=== PATIENT | male | born 1990 | race Caucasian/White ===

== ENCOUNTER 2024-12-09 09:50 | Emergency (ER) | payer BC ==
--- NOTE | 2024-12-09 09:53 | ERPHSYRPT ---
- History of Present Illness Time Seen by Provider: 12/09/24 09:53 Historian: patient Exam Limitations: no limitations Physician History: This is a morbidly obese 34-year-old white male patient who arrives by private vehicle accompanied by family and is a patient of Dr. Vera. The patient was sent to us from urgent care center in [facility] out of concern of an abnormality on the twelve-lead EKG as well as symptoms of right sided chest pain without radiation, cough, fluid in his ears. Patient denies shortness of breath. He has no documented history of coronary artery disease. He is not on any medications. He has additional symptoms of bilateral earaches as well. Timing/Duration: day(s) (4) Quality: aching Location: other (Right chest) Chest Pain Radiation: no radiation Severity of Pain-Max: mild Severity of Pain-Current: none Associated Symptoms: cough, No abdominal pain, No shortness of breath Prior Chest Pain/Cardiac Workup: no prior chest pain, no prior cardiac workup Nitro Today/Relief: no nitro taken today Aspirin Treatment Today: 81 mg x 4, provided by ED Allergies/Adverse Reactions: triamcinolone [From Kenalog] Allergy (Verified 12/09/24 10:21) Travel Risk - International Travel Have you traveled outside of the country in past 3 weeks: No - Emerging Infectious Disease Are you exhibiting symptoms associated with any current EIDs: No - Review of Systems Constitutional: No Symptoms Eyes: No Symptoms Ears, Nose, & Throat: No Symptoms Respiratory: Cough Cardiac: Chest Pain Abdominal/Gastrointestinal: No Symptoms Genitourinary Symptoms: No Symptoms Musculoskeletal: No Symptoms Skin: No Symptoms Neurological: No Symptoms Psychological: No Symptoms Endocrine: No Symptoms Hematologic/Lymphatic: No Symptoms Immunological/Allergic: No Symptoms All Other Systems: Reviewed and Negative - Past Medical History Pertinent Past Medical History: No - Nursing Vital Signs Nursing Vital Signs: Initial Vital Signs Temperature 98.3 F 12/09/24 09:51 Pulse Rate 62 12/09/24 09:51 Respiratory Rate 14 12/09/24 09:51 Blood Pressure 142/90 12/09/24 09:51 O2 Sat by Pulse Oximetry 97 12/09/24 09:51 Pain Scale Pain Intensity 4 - Physical Exam General Appearance: no apparent distress, alert, anxiety, obese Eye Exam: PERRL/EOMI, eyes nml inspection Ears, Nose, Throat Exam: normal ENT inspection, moist mucous membranes Neck Exam: normal inspection, non-tender, supple, full range of motion Respiratory Exam: normal breath sounds, lungs clear, airway intact, No chest tenderness (No significant tenderness in his chest at this time), No respiratory distress Cardiovascular Exam: regular rate/rhythm, normal heart sounds, normal peripheral pulses Gastrointestinal/Abdomen Exam: soft, normal bowel sounds, No tenderness Rectal Exam: not done Back Exam: normal inspection, normal range of motion, No CVA tenderness, No vertebral tenderness Extremity Exam: normal inspection, normal range of motion, pelvis stable Neurologic Exam: alert, oriented x 3, cooperative, 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 No evidence of acute ischemia.) Ordered Tests: Active Orders 24 hr Category Date Time Status Community Support Associate STAT Care 12/09/24 09:54 Active EKG-ER Only STAT Care 12/09/24 09:53 Active IV Insertion STAT Care 12/09/24 09:53 Active Pulse Oximetry (ED) STAT Care 12/09/24 09:53 Active CHEST 1 VIEW (PORTABLE) Stat Exams 12/09/24 09:54 Completed CBC W DIFF Stat Lab 12/09/24 10:18 Completed CMP Stat Lab 12/09/24 10:18 Completed D-DIMER QUANTITATIVE Stat Lab 12/09/24 10:18 Completed NT PRO BNPII Stat Lab 12/09/24 10:18 Completed PROTIME WITH INR Stat Lab 12/09/24 10:18 Completed PTT Stat Lab 12/09/24 10:18 Completed TROPONIN Q4H Lab 12/09/24 10:18 Completed TROPONIN Q4H Lab 12/09/24 14:00 Ordered TROPONIN Q4H Lab 12/09/24 18:00 Ordered Medication Summary Discontinued Medications Generic Name Dose Route Start Last Admin Trade Name Freq PRN Reason Stop Dose Admin Aspirin 324 mg 12/09/24 09:53 12/09/24 10:27 Aspirin 81 Mg Tab.Chew PO 12/09/24 09:54 324 mg STAT ONE Administration Aspirin Confirm 12/09/24 10:23 Aspirin 81 Mg Tab.Chew Administered 12/09/24 10:24 Dose 324 mg .ROUTE .STK-MED ONE Lab/Rad Data: Laboratory Result Diagrams 12/09/24 10:18 12/09/24 10:18 Laboratory Results 12/09/24 12/09/24 12/09/24 Range/Units 10:18 10:18 10:18 WBC (4.23-9.07) x10^3/uL RBC (4.63-6.08) x10^6/uL Hgb (13.7-17.5) g/dL Hct (40.1-51.0) % MCV (79.0-92.2) fL MCH (25.7-32.2) pg MCHC (32.3-36.5) g/dL RDW (11.6-14.4) % Plt Count (163-337) x10^3/uL MPV (9.4-12.4) fL Gran % (34.0-67.9) % Immature Gran % (Auto) (0.001-0.429) % Nucleat RBC Rel Count (0.00-0.2) % Eos # (Auto) (0.04-0.54) x10^3/uL Immature Gran # (Auto) (0.001-0.031) x10^3u/L Absolute Lymphs (auto) (1.32-3.57) x10^3/uL Absolute Monos (auto) (0.30-0.82) x10^3/uL Absolute Nucleated RBC (0.00-0.012) x10^3u/L Lymphocytes % (21.8-53.1) % Monocytes % (5.3-12.2) % Eosinophils % (0.8-7.0) % Basophils % (0.2-1.2) % Absolute Granulocytes (1.78-5.38) x10^3/uL Basophils # (0.01-0.08) x10^3/uL PT 10.5 (9.4-12.5) SECONDS INR 0.96 (0.8-3.0) APTT 28.8 (25.1-36.5) SECONDS D-Dimer 0.51 H (0.0-0.50) mg/L Sodium 140 (135-145) mmol/L Potassium 4.3 (3.5-5.1) mmol/L Chloride 104 (98-107) mmol/L Carbon Dioxide 28 (22-30) mmol/L Anion Gap 12.6 (5-15) MEQ/L BUN 10 (9-20) mg/dL Creatinine 0.77 (0.66-1.25) mg/dL Estimated GFR 119.7 ML/MIN Glucose 114 H (74-106) mg/dL Calcium 9.0 (8.4-10.2) mg/dL Total Bilirubin 0.90 (0.2-1.3) mg/dL AST 33 (17-59) U/L ALT 46 (0-50) U/L Alkaline Phosphatase 75 (38-126) U/L Troponin I < 0.012 (0.000-0.033) ng/mL NT-Pro-B Natriuret Pep 43.8 (<300) pg/mL Serum Total Protein 7.8 (6.3-8.2) g/dL Albumin 4.4 (3.5-5.0) g/dL 12/09/24 Range/Units 10:18 WBC 10.4 H (4.23-9.07) x10^3/uL RBC 5.35 (4.63-6.08) x10^6/uL Hgb 14.4 (13.7-17.5) g/dL Hct 44.6 (40.1-51.0) % MCV 83.4 (79.0-92.2) fL MCH 26.9 (25.7-32.2) pg MCHC 32.3 (32.3-36.5) g/dL RDW 13.7 (11.6-14.4) % Plt Count 230 (163-337) x10^3/uL MPV 11.0 (9.4-12.4) fL Gran % 75.8 H (34.0-67.9) % Immature Gran % (Auto) 0.4 (0.001-0.429) % Nucleat RBC Rel Count 0.0 (0.00-0.2) % Eos # (Auto) 0.14 (0.04-0.54) x10^3/uL Immature Gran # (Auto) 0.04 H (0.001-0.031) x10^3u/L Absolute Lymphs (auto) 1.50 (1.32-3.57) x10^3/uL Absolute Monos (auto) 0.79 (0.30-0.82) x10^3/uL Absolute Nucleated RBC 0.00 (0.00-0.012) x10^3u/L Lymphocytes % 14.4 L (21.8-53.1) % Monocytes % 7.6 (5.3-12.2) % Eosinophils % 1.3 (0.8-7.0) % Basophils % 0.5 (0.2-1.2) % Absolute Granulocytes 7.89 H (1.78-5.38) x10^3/uL Basophils # 0.05 (0.01-0.08) x10^3/uL PT (9.4-12.5) SECONDS INR (0.8-3.0) APTT (25.1-36.5) SECONDS D-Dimer (0.0-0.50) mg/L Sodium (135-145) mmol/L Potassium (3.5-5.1) mmol/L Chloride (98-107) mmol/L Carbon Dioxide (22-30) mmol/L Anion Gap (5-15) MEQ/L BUN (9-20) mg/dL Creatinine (0.66-1.25) mg/dL Estimated GFR ML/MIN Glucose (74-106) mg/dL Calcium (8.4-10.2) mg/dL Total Bilirubin (0.2-1.3) mg/dL AST (17-59) U/L ALT (0-50) U/L Alkaline Phosphatase (38-126) U/L Troponin I (0.000-0.033) ng/mL NT-Pro-B Natriuret Pep (<300) pg/mL Serum Total Protein (6.3-8.2) g/dL Albumin (3.5-5.0) g/dL - Progress Progress: improved, re-examined Air Movement: good Progress Note: 12/09/24 11:50 My medical decision making and the assignment of moderate complexity of this patient's medical issue today is based on review of the patient's past medical history, review the patient's medication list, reviewed patient drug allergy list, history of present illness and physical findings on examination. The workup in this patient includes placement of intravenous line, CBC, CMP, magnesium level, PT/INR/PTT, troponin level, D-dimer level, twelve-lead EKG and chest x-ray. Differential diagnosis includes but is not limited to CHF, COPD, myocardial infarction, arrhythmia, electrolyte abnormalities, upper respiratory infection, otitis media, otitis externa 12/09/24 11:52 I interpreted the patient's laboratory data results. Based on the laboratory data results, there are no laboratory data results to suggest an acute, emergent medical issue. The D-dimer level is at borderline high normal level. I will offer the patient the option of performing a CT scan of the chest with contrast and discuss risk benefits and alternatives with him. The preliminary chest x-ray report was interpreted by me. Patient has cardiomegaly otherwise no acute cardiopulmonary process. The final chest x-ray report was interpreted by the radiologist and I reviewed the impression the impression states borderline enlarged heart. No new or acute findings 12/09/24 11:55 The patient heart score is low. In addition I think there is low probability that this patient has a pulmonary embolus. Blood Culture(s) Obtained: No Antibiotics given: Yes, No Counseled pt/family regarding: lab results, diagnosis, need for follow-up, rad results Medical Desision Making - Independent Historian Additional History obtained from: Family - Diagnostic Testing Diagnostic test were ordered, analyzed, and reviewed by me: Yes Radiological Interpretation: Interpreted by me, Reviewed by me, Teleradiologist Report - Risk of complications Low Risk: Low risk of morbidity from additional dx testing or treatment The pt has a mod risk of morbidity or mortality based on: Need for prescription drug management - Departure Departure Disposition: Home Clinical Impression: Nonspecific chest pain, Otitis media Condition: Stable Critical Care Time: No Referrals: ABBY VERA [Primary Care Provider, [facility]] - Follow up/PCP as directed Additional Instructions: Drink plenty of fluids. Avoid exposure to any type of smoke. Take your antibiotics and other medications as prescribed. Call your primary care provider today, 12/09/2024, to make arrangements for follow-up appointment for further evaluation management. Discussed with your primary care provider for further outpatient testing such as echocardiogram or stress test if indicated. Prescriptions: Amoxicillin 500 mg Cap [Amoxil 500 mg] 500 mg PO TID #15 cap
[2024-12-09 10:18] VITALS: TEMP 98.3
[2024-12-09 10:20] LABS: BASOPHIL % 0.5 % (0.2-1.2); Basophil (Absolute #) 0.05 x10^3/uL (0.01-0.08); Eosinophil (Absolute #) 0.14 x10^3/uL (0.04-0.54); Hematocrit 44.6 % (40.1-51.0); Hemoglobin 14.4 g/dL (13.7-17.5); IMMATURE GRAN # 0.04 x10^3u/L (0.001-0.031); IMMATURE GRAN % 0.4 % (0.001-0.429); Lymphocyte (Absolute #) 1.50 x10^3/uL (1.32-3.57); Mean Corpuscular Hemoglobin 26.9 pg (25.7-32.2); Mean Corpuscular Hgb Concent. 32.3 g/dL (32.3-36.5); Monocyte (Absolute #) 0.79 x10^3/uL (0.30-0.82); NUCLEATED RBC # 0.00 x10^3u/L (0.00-0.012); NUCLEATED RBC % 0.0 % (0.00-0.2); Platelet Count 230 x10^3/uL (163-337); Red Blood Count 5.35 x10^6/uL (4.63-6.08); White Blood Count 10.4 x10^3/uL (4.23-9.07)
[2024-12-09] MEDS ORDERED: BABY ASPIRIN 81 MG CHEW ONE (10:23)
[2024-12-09] MEDS: BABY ASPIRIN 81 MG CHEW PO ONE (10:27)
[2024-12-09 10:36] LABS: INR 0.96 (0.8-3.0); PROTIME 10.5 SECONDS (9.4-12.5); PTT 28.8 SECONDS (25.1-36.5)
[2024-12-09 10:43] LABS: Calcium 9.0 mg/dL (8.4-10.2); Carbon Dioxide 28.0 mmol/L (22-30); Creatinine 1 0.77 mg/dL (0.66-1.25); EST GLOMERULAR FILTRATION RATE 119.7 ML/MIN; Glucose 114.0 mg/dL (74-106); NT PRO BNPII 43.8 pg/mL (<300); Potassium 4.3 mmol/L (3.5-5.1); SGOT/AST 33.0 U/L (17-59); SGPT/ALT 46.0 U/L (0-50); Total Protein 7.8 g/dL (6.3-8.2)
--- NOTE | 2024-12-09 10:49 | XRAY ---
Indication: Chest pain. Cough. Comparison: December 17, 2020 Portable chest remains inflated and clear with incidental right midlung calcified granuloma. Heart borderline enlarged. Bony thorax intact with mild degenerative changes. No new/acute findings.
[2024-12-09 11:50] VITALS: PULSE 56; RESP 17
[2024-12-09 12:01] VITALS: BP 118/85; O2SAT 97
== END 2024-12-09 12:13 | disposition home or self-care (01) ==
LOC: ED 09:50
DX: R07.9 Chest pain, unspecified (principal); H66.93 Otitis media, unspecified, bilateral; H92.03 Otalgia, bilateral; Z79.899 Other long term (current) drug therapy